=== PATIENT | female | born 1950 | race Caucasian/White ===

== ENCOUNTER → 2017-03-13 | Outpatient (CLI) | payer OTHER, BC ==
[~2017-03-13] MED LIST: ASCORBIC ACID500 M3 PO; CARDIZEM120 MG PO; CEFTIN500 MG PO; COLACE100 MG PO; COUMADIN3 MG PO; Cardizem CD,Cartia XT,Tiazac PO; ENDOCET 5-3251 EACH PO; FLONASE16 G1 BOTH NARES; FOLIC ACID1 MG PO; Flora-Q,Risaquad PO; LEVOFLOXACIN750 MG PO; MACROBID100 MG PO; METAMUCIL PACKE1 PKT PO; MOVE FREE1 CAPSULE PO; MULTIVITAMIN1 EAC2 PO; PANTOPRAZOLE SO40 MG PO; PERCOCET 5/31 TABLET PO; PLAVIX75 MG PO; PREDNISONE5 MG PO; SALINE NASAL SP45 ML BOTH NARES; SENNA-TIME S T1 EACH PO; TYLENOL ARTHRI650 MG PO; WARFARIN SODIUM5 MG PO; XARELTO20 MG PO
== END | disposition home or self-care (01) ==
DX: M17.11 Unilateral primary osteoarthritis, right knee (principal); R26.2 Difficulty in walking, not elsewhere classified; M25.561 Pain in right knee; M25.661 Stiffness of right knee, not elsewhere classified; M62.81 Muscle weakness (generalized); Z74.1 Need for assistance with personal care
CPT/HCPCS: 97161 GP; 97165 GO; 97530 GP; 97537 GO; G8978 GP; G8979 GP; G8980 GP; G8987 GO; G8988 GO; G8989 GO

== ENCOUNTER 2017-03-26 21:24 | Inpatient (IN) | payer OTHER, BC ==
[~2017-03-26] VITALS: Ht 167.6 cm; Wt 120.1 kg
[~2017-03-26 21:24] MED LIST changes: +CITRUCEL907 G1 PO; +LOPRESSOR25 MG PO; +METFORMIN HCL500 M4 PO; +PRIVIGEN IV
[2017-03-27 08:01] LABS: POINT-OF-CARE METER ID UU14174212
[2017-03-27 08:14] VITALS: BP 118/66
[2017-03-27 11:53] LABS: HEMATOCRIT 40.4 % (36.0-46.0); MCH 27.7 PG (29.0-34.0); MCHC 33.2 G/DL (30.0-36.0); MCV 83.5 FL (83-99); MEAN PLAT.VOLUME 11.1 uM^3 (9.5-12.4); PLATELET COUNT 239 K/uL (156-360); RBC DIS.WIDTH-CV 13.4 % (11.8-14.6); RBC DIS.WIDTH-SD 40.8 % (39-53); RED BLOOD COUNT 4.84 M/uL (3.80-5.20); WHITE BLOOD COUNT 10.4 K/uL (4.1-10.2)
[2017-03-27 12:01] LABS: POINT-OF-CARE METER ID UU13113675
[2017-03-27 14:55] VITALS: BP 103/53
[2017-03-27] MEDS ORDERED: CARTIA XT120 MG PO (15:26)
[2017-03-27 17:41] LABS: POINT-OF-CARE METER ID UU13113712
[2017-03-27 20:30] VITALS: BP 110/56
[2017-03-27 21:49] LABS: POINT-OF-CARE METER ID UU13113712
[2017-03-28 00:15] VITALS: BP 118/67
[2017-03-28 04:13] VITALS: BP 121/60
[2017-03-28 04:53] LABS: HEMATOCRIT 37.2 % (36.0-46.0); MCV 82.3 FL (83-99)
[2017-03-28 05:00] LABS: CHLORIDE 106 mEq/L (99-109); POTASSIUM 4.3 mEq/L (3.7-5.4); SODIUM 137 mEq/L (136-147)
[2017-03-28 05:02] LABS: GLUCOSE 144 mg/dL (70-99)
[2017-03-28 05:03] LABS: ANION GAP 9 MEQ/L (2-14)
[2017-03-28 05:06] LABS: GFR ESTIMATE (CALCULATED) > 59 mL/min/; UREA NITROGEN (BUN) 10 mg/dL (9-23)
[2017-03-28 08:25] VITALS: BP 99/54
[2017-03-28 12:05] LABS: POINT-OF-CARE METER ID UU13113712
[2017-03-28 16:21] VITALS: BP 126/58
[2017-03-28 16:50] LABS: POINT-OF-CARE METER ID UU13113712
[2017-03-28 20:09] VITALS: BP 124/60
[2017-03-28 21:49] LABS: POINT-OF-CARE METER ID UU13113712
[2017-03-29 00:22] VITALS: BP 106/56
[2017-03-29 04:13] VITALS: BP 107/53
[2017-03-29 04:53] LABS: HEMATOCRIT 36.2 % (36.0-46.0); MCV 83.4 FL (83-99)
[2017-03-29] MEDS ORDERED: ENDOCET 5-3251 EACH PO (07:41)
[2017-03-29] MEDS ORDERED: LOVENOX40 MG/0.4 SC (07:41)
[2017-03-29 07:59] VITALS: BP 139/69
[2017-03-29 12:06] VITALS: BP 113/61
[2017-03-29 15:54] LABS: POINT-OF-CARE METER ID UU13113720
[2017-03-29] MEDS ORDERED: SALONPAS PATCH1 EAC1 TD (17:04)
[2017-03-29] MEDS ORDERED: ZOFRAN4 MG PO (17:04)
[2017-03-29] MEDS ORDERED: NOVOLOG PE100 UNITS/ SC (17:05)
[2017-03-29] MEDS ORDERED: BENADRYL25 MG PO (17:06)
[2017-03-29] MEDS ORDERED: NORCO 5/3251 TABLET PO (17:07)
[2017-03-29] MEDS ORDERED: NORCO 10/3251 TABLET PO (17:08)
[2017-03-29] MEDS ORDERED: XARELTO20 MG PO (17:09)
== END 2017-03-29 15:48 | DRG 470 ==
LOC: ENRESERV 21:24 → 2SOUTH 03-27 07:09 → 3WEST 03-27 07:09 → 2SOUTH 03-27 09:19 → 3WEST 03-27 14:42
PROVIDERS: Orthopaedic Surgery
PROC: 0SRC0J9 Replacement of Right Knee Joint with Synthetic Substitute, Cemented, Open Approach (ICD-10-PCS; principal; 2017-03-27)
DX: M17.11 Unilateral primary osteoarthritis, right knee (principal); M25.561 Pain in right knee; F41.9 Anxiety disorder, unspecified; F32.9 Major depressive disorder, single episode, unspecified; I48.91 Unspecified atrial fibrillation; G61.81 Chronic inflammatory demyelinating polyneuritis; K57.92 Diverticulitis of intestine, part unspecified, without perforation or abscess without bleeding; Z96.652 Presence of left artificial knee joint; Z98.51 Tubal ligation status; Z90.49 Acquired absence of other specified parts of digestive tract
CPT/HCPCS: 73560; 80048; 82948; 85014; 85018; 85027; C1713; J0131; J0461; J1100; J1170; J1650; J1815; J2250; J2405; J3010; J7030; J7050

== ENCOUNTER 2017-03-29 13:34 | Inpatient (IN) | payer OTHER, BC ==
[~2017-03-29] VITALS: Ht 167.6 cm; Wt 120.0 kg
[~2017-03-29 13:34] MED LIST changes: +CARTIA XT120 MG PO; +LOVENOX40 MG/0.4 SC
[2017-03-29 16:03] VITALS: BP 135/65
[2017-03-29] MEDS ORDERED: ZOFRAN4 MG PO (17:04)
[2017-03-29] MEDS ORDERED: SALONPAS PATCH1 EAC1 TD (17:04)
[2017-03-29] MEDS ORDERED: NOVOLOG PE100 UNITS/ SC (17:05)
[2017-03-29] MEDS ORDERED: BENADRYL25 MG PO (17:06)
[2017-03-29] MEDS ORDERED: NORCO 5/3251 TABLET PO (17:07)
[2017-03-29] MEDS ORDERED: NORCO 10/3251 TABLET PO (17:08)
[2017-03-29] MEDS ORDERED: XARELTO20 MG PO (17:09)
[2017-03-29 21:13] LABS: POINT-OF-CARE METER ID UU13113720
[2017-03-30 00:06] VITALS: BP 135/91
[2017-03-30 05:25] VITALS: BP 151/68
[2017-03-30 07:00] LABS: HEMATOCRIT 36.2 % (36.0-46.0); MCH 26.8 PG (29.0-34.0); MCHC 31.8 G/DL (30.0-36.0); MCV 84.4 FL (83-99); MEAN PLAT.VOLUME 11.6 uM^3 (9.5-12.4); PLATELET COUNT 209 K/uL (156-360); RBC DIS.WIDTH-CV 13.9 % (11.8-14.6); RBC DIS.WIDTH-SD 43.3 % (39-53); RED BLOOD COUNT 4.29 M/uL (3.80-5.20); WHITE BLOOD COUNT 7.9 K/uL (4.1-10.2)
[2017-03-30 07:30] LABS: ALKALINE PHOSPHATASE 86 IU/L (3-129); ANION GAP 6 MEQ/L (2-14); CHLORIDE 105 MEQ/L (99-109); GFR ESTIMATE (CALCULATED) > 59 mL/min/; GLUCOSE 148 mg/dL (70-99); POTASSIUM 4.1 MEQ/L (3.7-5.4); SAMPLE HEMOLYSIS CHECK 0; SAMPLE ICTERIC CHECK 0; SAMPLE LIPEMIA CHECK 0; SODIUM 140 MEQ/L (136-147); TOTAL BILIRUBIN 0.4 MG/DL (0.0-1.0); UREA NITROGEN (BUN) 11 mg/dL (9-23)
[2017-03-30 11:58] LABS: POINT-OF-CARE METER ID UU13113720; POINT-OF-CARE USER ID AHSSSJB31
[2017-03-30 15:42] VITALS: BP 119/66
[2017-03-30 16:26] LABS: POINT-OF-CARE METER ID UU13113720
[2017-03-30 21:12] LABS: POINT-OF-CARE METER ID UU14174215
[2017-03-31 04:22] VITALS: BP 131/71
[2017-03-31 06:06] LABS: POINT-OF-CARE METER ID UU13113720
[2017-03-31 11:29] LABS: POINT-OF-CARE METER ID UU13113720; POINT-OF-CARE USER ID ENVGAF
[2017-03-31 15:48] VITALS: BP 114/58
[2017-03-31 16:52] LABS: POINT-OF-CARE METER ID UU14174215
[2017-03-31 21:16] LABS: POINT-OF-CARE METER ID UU13113720
[2017-04-01 04:48] VITALS: BP 119/58
[2017-04-01 15:36] VITALS: BP 123/59
[2017-04-02 05:02] VITALS: BP 132/86
[2017-04-02 15:15] VITALS: BP 122/60
[2017-04-02 16:48] LABS: POINT-OF-CARE METER ID UU13113720
[2017-04-03 04:11] VITALS: BP 133/83
[2017-04-03 07:29] LABS: POINT-OF-CARE METER ID UU14174215
[2017-04-03 14:30] VITALS: BP 118/61
[2017-04-03 16:43] LABS: POINT-OF-CARE METER ID UU13113720
[2017-04-04 05:15] VITALS: BP 122/68
[2017-04-04 06:20] LABS: POINT-OF-CARE METER ID UU13113720
[2017-04-04 15:46] VITALS: BP 136/66
[2017-04-04 16:24] LABS: POINT-OF-CARE METER ID UU13113720
[2017-04-05 05:00] VITALS: BP 148/67
[2017-04-05 06:36] LABS: POINT-OF-CARE METER ID UU14174215
[2017-04-05 10:31] VITALS: BP 158/65
[2017-04-05 15:22] VITALS: BP 115/60
[2017-04-05 17:13] LABS: POINT-OF-CARE METER ID UU14174215
[2017-04-05] MEDS ORDERED: SENNA PLUS TAB1 EACH PO (18:43)
[2017-04-06 05:19] VITALS: BP 129/80
[2017-04-06 06:05] LABS: HEMATOCRIT 35.6 % (36.0-46.0); MCH 27.6 PG (29.0-34.0); MCHC 32.6 G/DL (30.0-36.0); MCV 84.6 FL (83-99); MEAN PLAT.VOLUME 10.9 uM^3 (9.5-12.4); RBC DIS.WIDTH-CV 13.5 % (11.8-14.6); RBC DIS.WIDTH-SD 41.5 % (39-53); RED BLOOD COUNT 4.21 M/uL (3.80-5.20); WHITE BLOOD COUNT 7.3 K/uL (4.1-10.2)
[2017-04-06 06:12] LABS: PLATELET COUNT 335 K/uL (156-360)
[2017-04-06 06:26] LABS: ALKALINE PHOSPHATASE 106 IU/L (3-129); ANION GAP 5 MEQ/L (2-14); CHLORIDE 104 MEQ/L (99-109); GFR ESTIMATE (CALCULATED) > 59 mL/min/; GLUCOSE 118 mg/dL (70-99); POTASSIUM 4.2 MEQ/L (3.7-5.4); SAMPLE HEMOLYSIS CHECK 0; SAMPLE ICTERIC CHECK 0; SAMPLE LIPEMIA CHECK 0; SODIUM 139 MEQ/L (136-147); UREA NITROGEN (BUN) 10 mg/dL (9-23)
[2017-04-06 06:31] LABS: TOTAL BILIRUBIN 0.6 MG/DL (0.0-1.0)
[2017-04-06 06:58] LABS: POINT-OF-CARE METER ID UU14174215; POINT-OF-CARE USER ID ENVGAF
[2017-04-06 08:28] VITALS: BP 119/66
[2017-04-06] MEDS ORDERED: NORCO 5/3251 TABLET PO (12:49)
[2017-04-06 15:19] VITALS: BP 109/58
[2017-04-06 16:46] LABS: POINT-OF-CARE METER ID UU14174215
[2017-04-07 05:51] VITALS: BP 129/62
[2017-04-07 08:03] LABS: POINT-OF-CARE METER ID UU14174215; POINT-OF-CARE USER ID AHSSSJB31
== END 2017-04-07 13:45 | disposition home health service (06) | DRG 560 ==
LOC: 3WEST 13:34 → ENPENDDIS 04-07 → 3WEST 04-07 13:45
PROVIDERS: Physical Medicine & Rehabilitation Pain Medicine
PROC: F07M0ZZ Range of Motion and Joint Mobility Treatment of Musculoskeletal System - Whole Body (ICD-10-PCS; principal; 2017-03-29)
DX: Z47.1 Aftercare following joint replacement surgery (principal); G61.81 Chronic inflammatory demyelinating polyneuritis; Z68.41 Body mass index [BMI] 40.0-44.9, adult; D62 Acute posthemorrhagic anemia; E83.51 Hypocalcemia; I48.2 Chronic atrial fibrillation; K57.90 Diverticulosis of intestine, part unspecified, without perforation or abscess without bleeding; Z96.653 Presence of artificial knee joint, bilateral; R26.2 Difficulty in walking, not elsewhere classified; M17.11 Unilateral primary osteoarthritis, right knee; E66.9 Obesity, unspecified
CPT/HCPCS: 80053; 82948; 85027; 93971; 97110 GO; 97530 GP; J1650

== ENCOUNTER → 2017-11-02 | Outpatient (CLI) | payer MEDICARE, OTHER ==
[~2017-11-02] MED LIST changes: +BENADRYL25 MG PO; +ESTROVEN 155 M155 MG PO; +NORCO 10/3251 TABLET PO; +NORCO 5/3251 TABLET PO; +NOVOLOG PE100 UNITS/ SC; +SALONPAS PATCH1 EAC1 TD; +SENNA PLUS TAB1 EACH PO; +ZOFRAN4 MG PO
== END | disposition home or self-care (01) ==
LOC: CDC 08:34
DX: Z01.810 Encounter for preprocedural cardiovascular examination (principal); N28.89 Other specified disorders of kidney and ureter; R94.31 Abnormal electrocardiogram [ECG] [EKG]
CPT/HCPCS: 93000

== ENCOUNTER 2017-11-07 22:05 | Inpatient (IN) | payer OTHER ==
[~2017-11-07] VITALS: Ht 167.6 cm; Wt 122.3 kg
[2017-11-08 07:07] VITALS: BP 161/77
[2017-11-08 14:37] VITALS: BP 128/71
[2017-11-08 19:42] VITALS: BP 127/68
[2017-11-08 22:10] VITALS: BP 135/68
[2017-11-09 04:26] VITALS: BP 131/70
[2017-11-09 06:01] LABS: HEMATOCRIT 37.3 % (36.0-46.0); HEMOGLOBIN 12.3 G/DL (11.9-15.5); MCH 26.6 PG (29.0-34.0); MCV 80.6 FL (83-99); PLATELET COUNT 205 K/uL (156-360); RBC DIS.WIDTH-CV 14.4 % (11.8-14.6); RBC DIS.WIDTH-SD 42.4 % (39-53); RED BLOOD COUNT 4.63 M/uL (3.80-5.20); WHITE BLOOD COUNT 8.4 K/uL (4.1-10.2)
[2017-11-09 06:21] LABS: CHLORIDE 103 MEQ/L (99-109); CREATININE 1.1 MG/DL (0.6-1.3); GFR ESTIMATE (CALCULATED) 53 mL/min/; GLUCOSE 127 mg/dL (70-99); POTASSIUM 4.2 MEQ/L (3.7-5.4); SODIUM 137 MEQ/L (136-147); UREA NITROGEN (BUN) 11 mg/dL (9-23)
[2017-11-09 08:05] VITALS: BP 120/60
[2017-11-09 12:05] VITALS: BP 109/50
[2017-11-09 15:00] VITALS: BP 127/62
[2017-11-09 20:01] VITALS: BP 108/58
[2017-11-10] VITALS (7 sets, daily range): BP systolic 108–141; BP diastolic 56–66
[2017-11-10 06:35] LABS: HEMATOCRIT 36.9 % (36.0-46.0); HEMOGLOBIN 11.7 G/DL (11.9-15.5); MCH 26.1 PG (29.0-34.0); MCHC 31.7 G/DL (30.0-36.0); MCV 82.4 FL (83-99); PLATELET COUNT 197 K/uL (156-360); RBC DIS.WIDTH-CV 14.7 % (11.8-14.6); RBC DIS.WIDTH-SD 44.9 % (39-53); RED BLOOD COUNT 4.48 M/uL (3.80-5.20); WHITE BLOOD COUNT 7.8 K/uL (4.1-10.2)
[2017-11-10 07:07] LABS: ALKALINE PHOSPHATASE 75 IU/L (3-129); ALT (GPT) 18 IU/L (3-49); AST (GOT) 19 IU/L (2-34); CHLORIDE 105 MEQ/L (99-109); GFR ESTIMATE (CALCULATED) > 59 mL/min/; GLUCOSE 128 mg/dL (70-99); POTASSIUM 4.2 MEQ/L (3.7-5.4); SODIUM 139 MEQ/L (136-147); TOTAL BILIRUBIN 0.5 MG/DL (0.0-1.0); UREA NITROGEN (BUN) 12 mg/dL (9-23)
[2017-11-10 10:43] LABS: HEMOGLOBIN A1c (GLYCOHEMOGLOB) 6.8 % (Below 5.7)
[2017-11-10 10:54] LABS: TROP-I INTERPRETATION NEGATIVE; TROPONIN-I 0.01 ng/mL (0.0-0.30)
[2017-11-11 03:48] VITALS: BP 128/69
[2017-11-11 06:29] LABS: HEMATOCRIT 36.7 % (36.0-46.0); HEMOGLOBIN 11.8 G/DL (11.9-15.5); MCH 26.5 PG (29.0-34.0); MCHC 32.2 G/DL (30.0-36.0); MCV 82.3 FL (83-99); PLATELET COUNT 187 K/uL (156-360); RBC DIS.WIDTH-CV 14.4 % (11.8-14.6); RBC DIS.WIDTH-SD 42.7 % (39-53); RED BLOOD COUNT 4.46 M/uL (3.80-5.20); WHITE BLOOD COUNT 5.9 K/uL (4.1-10.2)
[2017-11-11 07:10] LABS: CHLORIDE 106 MEQ/L (99-109); CREATININE 0.9 MG/DL (0.6-1.3); GFR ESTIMATE (CALCULATED) > 59 mL/min/; GLUCOSE 117 mg/dL (70-99); SODIUM 141 MEQ/L (136-147); TOTAL BILIRUBIN 0.6 MG/DL (0.0-1.0); TOTAL PROTEIN 6.1 G/DL (6.4-8.3); UREA NITROGEN (BUN) 10 mg/dL (9-23)
[2017-11-11 07:11] LABS: ALKALINE PHOSPHATASE 104 IU/L (3-129); ALT (GPT) 49 IU/L (3-49); AST (GOT) 47 IU/L (2-34)
[2017-11-11 07:20] VITALS: BP 133/74
[2017-11-11 16:10] VITALS: BP 137/63
[2017-11-11 23:11] VITALS: BP 123/65
[2017-11-12 04:04] VITALS: BP 121/70
[2017-11-12 05:58] LABS: HEMATOCRIT 37.5 % (36.0-46.0); HEMOGLOBIN 11.9 G/DL (11.9-15.5); MCH 25.8 PG (29.0-34.0); MCHC 31.7 G/DL (30.0-36.0); MCV 81.2 FL (83-99); PLATELET COUNT 225 K/uL (156-360); RBC DIS.WIDTH-CV 14.2 % (11.8-14.6); RBC DIS.WIDTH-SD 42.2 % (39-53); RED BLOOD COUNT 4.62 M/uL (3.80-5.20); WHITE BLOOD COUNT 5.7 K/uL (4.1-10.2)
[2017-11-12 06:19] LABS: ALBUMIN 2.9 G/DL (3.2-4.8); ALKALINE PHOSPHATASE 98 IU/L (3-129); ALT (GPT) 51 IU/L (3-49); AST (GOT) 57 IU/L (2-34); CHLORIDE 106 MEQ/L (99-109); GFR ESTIMATE (CALCULATED) > 59 mL/min/; GLUCOSE 111 mg/dL (70-99); POTASSIUM 3.9 MEQ/L (3.7-5.4); SODIUM 142 MEQ/L (136-147); TOTAL BILIRUBIN 0.7 MG/DL (0.0-1.0); TOTAL PROTEIN 6.1 G/DL (6.4-8.3); UREA NITROGEN (BUN) 10 mg/dL (9-23)
[2017-11-12 07:10] VITALS: BP 138/67
== END 2017-11-12 13:08 | disposition home or self-care (01) | DRG 657 ==
LOC: 2SOUTH → ENRESERV 22:05 → 5EAST 11-08 06:14 → 2SOUTH 11-08 06:14 → ENRESERV 11-08 07:27 → 5EAST 11-08 14:01 → 2SOUTH 11-08 14:23 → ENPENDDIS 11-12 → 5EAST 11-12 13:08
PROVIDERS: Internal Medicine; Urology
PROC: 0TT00ZZ Resection of Right Kidney, Open Approach (ICD-10-PCS; principal; 2017-11-08)
DX: D30.01 Benign neoplasm of right kidney (principal); G61.81 Chronic inflammatory demyelinating polyneuritis; E11.9 Type 2 diabetes mellitus without complications; I48.91 Unspecified atrial fibrillation; K59.09 Other constipation; M19.90 Unspecified osteoarthritis, unspecified site; E66.9 Obesity, unspecified; Z68.41 Body mass index [BMI] 40.0-44.9, adult; Z79.01 Long term (current) use of anticoagulants; Z79.84 Long term (current) use of oral hypoglycemic drugs
CPT/HCPCS: 80048; 80053; 82948; 83036; 84484; 85027; 86850; 86900; 86901; 88307; 93005; 94799; J0131; J0330; J0690; J1100; J1170; J1580; J1815; J2250; J2405; J2710; J2765; J3010; J3475; J7120; J7643